=== PATIENT | female | born 1975 | race Caucasian/White ===

== ENCOUNTER 2016-08-26 06:02 | Day surgery (SDC) | payer OTHER ==
[2016-08-19 10:09] LABS: BASOPHILS 0.6 %; BASOPHILS ABSOLUTE 0.04 10/3/uL (0.0-0.16); EOSINOPHILS 2.1 %; EOSINOPHILS ABSOLUTE 0.15 10/3/uL (0.0-0.53); HEMATOCRIT 44.6 % (36.0-48.0); IMMATURE GRANULOCYTES 0.1 %; IMMATURE GRANULOCYTES ABSOLUTE 0.01 10/3/uL (0.0-0.11); LYMPHOCYTES 23.9 %; LYMPHOCYTES ABSOLUTE 1.71 10/3/uL (0.67-4.30); MEAN CORPUS HGB CONC 33.6 g/dL (32.0-36.0); MEAN CORPUSCULAR HEMOGLOB 30.5 pg (26.0-34.0); MEAN PLATELET VOLUME 11.4 fL (9.2-13.0); MONOCYTES 6.3 %; MONOCYTES ABSOLUTE 0.45 10/3/uL (0.21-1.20); NEUTROPHILS ABSOLUTE 4.78 10/3/uL (2.02-8.40); PLATELET COUNT 300 10/3/uL (150-400); RBC DISTRIBUTION WIDTH 12.5 % (12.0-16.0); RED CELL COUNT 4.91 10/6/uL (4.0-5.6); WHITE BLOOD CELLS 7.1 10/3/uL (4.5-10.5)
[2016-08-19 10:15] LABS: MANUAL DIFF NO %; MEAN CORPUSCULAR VOLUME 90.8 fL (80-100)
[2016-08-19 10:22] LABS: BUN (BLOOD UREA NITROGEN) 14 MG/DL (6-23); CALCIUM, SERUM 9.1 MG/DL (8.5-10.4); CHLORIDE, SERUM 103 MMOL/L (96-112); CO2 (CARBON DIOXIDE) 32 MMOL/L (24-34); CREATININE 1.04 MG/DL (0.55-1.02); GFR AFRICAN AMERICAN 78 ML/MIN (>=60); GFR NON AFRICAN AMERICAN 67 ML/MIN (>=60); GLUCOSE, SERUM 80 MG/DL (60-99); POTASSIUM, SERUM 3.6 MMOL/L (3.5-5.3); SODIUM, SERUM 144 MMOL/L (135-148)
--- NOTE | ~2016-08-26 | OP ---
Record Of Operation [facility] [address] [place]. [address] NAME: DEANN SCHROEDER : 75 STATUS : [place] [facility] [place] PAT#: [id number] AGE: 40 ADM/REG DATE : 08/26/16 MR#: [id number] REPORT SERV DATE: 08/26/16 DICTATED BY: SATISH STEWART DATE: 08/26/16 REPORT STATUS : Draft TRANSCRIBED BY: EMEKA DATE: 08/26/16 DATE OF PROCEDURE: 08/26/2016 SERVICE: Otolaryngology. PREOPERATIVE DIAGNOSIS: Chronic tonsillitis. POSTOPERATIVE DIAGNOSIS: Chronic tonsillitis. PROCEDURE: Tonsillectomy. ANESTHESIA: General endotracheal anesthesia. COMPLICATIONS: None. SPECIMENS: 1. Left tonsil. 2. Right tonsil. FINDINGS: 3+ cryptic tonsils. STATEMENT OF MEDICAL NECESSITY: A 40-year-old female with history of recurrent and chronic tonsillitis. Given her history, recommended the above surgery. STATEMENT OF OPERATION: The patient was brought to the operating room in supine position, transferred over to the operating room table. After all pressure points were padded and general endotracheal anesthesia was established, the triple antibiotic ointment was applied to the lips. Afrin instilled in each nostril. A McIvor mouth gag was inserted and locked for retraction of the tongue and oral cavity. A red rubber catheter was passed through the left naris brought out of the mouth and locked for retraction of soft palate and uvula. A total of 5 mL of 0.25% plain Marcaine were injected in the parapharyngeal muscles and peritonsillar spaces. The left tonsil was removed first with the suction cautery followed by the right tonsil. They were both passed off separately for specimen. The nasopharynx and pharynx were irrigated thoroughly with warm saline. The stomach was suctioned clear of blood and fluid with an orogastric tube. This concluded the case. A red rubber catheter and the McIvor mouth gag were removed. The patient was turned over to Anesthesia, where she awoke, was extubated, and transferred to the PACU in stable condition. PS/EMEKA Satish Stewart MD / [id number] Record Of Operation [address] [address] NAME: DEANN SCHROEDER : 75 STATUS : [place] [facility] [place] PAT#: [id number] AGE: 40 ADM/REG DATE : 08/26/16 MR#: [id number] REPORT SERV DATE: 08/26/16 DICTATED BY: SATISH STEWART DATE: 08/26/16 REPORT STATUS : Draft TRANSCRIBED BY: EMEKA DATE: 08/26/16 CC: MD Laura Aguilar M.D.
[~2016-08-26 06:02] MED LIST: ALLERGY SHOTS; COMPOUNDED TROCHE; CYMBALTA30 PO; ENDOMETRIN100 MG; LOESTRIN 24 PO; NAP500 PO; NEUR300 PO; VALTREX5 PO; VENTOLIN HFA; VIT D
== END 2016-08-26 23:59 | disposition home or self-care (01) ==
LOC: MSC 06:02
PROVIDERS: Otolaryngology
PROC: 0CTPXZZ Resection of Tonsils, External Approach (ICD-10-PCS; principal; 2016-08-26 07:15)
DX: J35.01 Chronic tonsillitis (principal)
CPT/HCPCS: 80048; 85025; 88304; 93005; A9270-GY; J0735; J2250; J2405; J3010